=== PATIENT | male | born 1960 | race Two or more races ===

== ENCOUNTER 2019-06-29 13:10 | Outpatient (CLI) | payer OTHER | END 2019-06-29 13:44 | disposition home or self-care (01) | LOC: SONOGRAMA 13:10 | DX: M25.511 Pain in right shoulder (principal) ==

== ENCOUNTER 2021-10-01 15:17 | Outpatient (CLI) | payer OTHER | END 2021-10-01 15:27 | disposition home or self-care (01) | LOC: PPH VACUNA 15:17 | PROVIDERS: ATTEND Emergency Medicine Pediatric Emergency Medicine | DX: Z23 Encounter for immunization (principal) ==

== ENCOUNTER 2022-05-06 08:59 | Outpatient (CLI) | payer OTHER | END 2022-05-06 09:07 | disposition home or self-care (01) | LOC: SONOGRAMA 08:59 | PROVIDERS: ATTEND Specialist | DX: M15.8 Other polyosteoarthritis (principal); R22.2 Localized swelling, mass and lump, trunk ==

== ENCOUNTER 2022-09-28 06:07 | Day surgery (SDC) | payer OTHER ==
[~2022-09-28] VITALS: Ht 182.9 cm; Wt 108.9 kg
== END 2022-09-28 14:25 | disposition home or self-care (01) ==
LOC: CIR.AMB 06:07
PROVIDERS: ATTEND Specialist
DX: D17.1 Benign lipomatous neoplasm of skin and subcutaneous tissue of trunk (principal); R22.2 Localized swelling, mass and lump, trunk; Z20.822 Contact with and (suspected) exposure to COVID-19; Z87.891 Personal history of nicotine dependence

== ENCOUNTER 2022-10-04 22:12 | Emergency (ER) | payer OTHER ==
[~2022-10-04] VITALS: Ht 182.9 cm; Wt 108.9 kg
[2022-10-04] MEDS ORDERED: DUI500 PO (23:46)
== END 2022-10-05 00:07 | disposition home or self-care (01) ==
LOC: ER 22:12
DX: S31.109A Unspecified open wound of abdominal wall, unspecified quadrant without penetration into peritoneal cavity, initial encounter (principal)